=== PATIENT | female | born 1955 | race Caucasian/White ===

== ENCOUNTER 2020-10-16 19:02 | Inpatient (IN) | payer OTHER, SELFPAY ==
[2020-10-16 19:25] VITALS: BP 113/74; PULSE 92; RESP 14; TEMP 37.2; O2SAT 97; BMI 40.7
--- NOTE | 2020-10-16 22:46 | W.ED.NAVMDI ---
Documented by User: JEAN MARIE Anderson 10/17/20 03:15 HPI - Nausea/Vomiting/Diarrhea General: Chief complaint: Nausea/Vomiting/Diarrhea Stated complaint: weakness/n/v/d Time Seen by Provider: 10/16/20 22:46 Source: patient Mode of arrival: ambulatory Limitations: no limitations History of Present Illness: HPI Narrative: Patient is a 65-year-old female who presents to ED today with a complaint of nausea, vomiting, and diarrhea. Patient tells me nausea and vomiting began approximately 3 days ago. She tells me she has had countless episodes of non-bloody vomit. She is reporting diarrhea that started yesterday evening. She states she has had an loose stool approximately every hour since onset. She states the diarrhea is not bloody or black. She is having epigastric pain. Daughter states she was running fevers of 101 today. Patient denies URI symptoms. She is not having chest pain or shortness of breath. No COVID exposure. Denies urinary symptoms. MD elicited complaint: nausea, vomiting, diarrhea and abdominal pain Onset (ago): day(s) Description of vomiting: watery Description of diarrhea: watery Associated nausea: Yes Associated abdominal pain: Yes Location of pain: Epigastric Exacerbating factors: eating Relieving factors: none Associated symtoms: Reports nausea; Denies chest pain, dysuria, fatigue, headache(s) or malaise Review of Systems Const: Reports: fever(s); Denies: chills, body aches, fatigue or malaise ENMT: Denies: odynophagia Card: Denies: chest pain Resp: Denies: dyspnea GI: Reports: abdominal pain, nausea, vomiting and diarrhea; Denies: hematemesis, hematochezia, melena or white/light colored stool : Denies: flank pain, difficulty voiding, dysuria, urinary frequency, urinary urgency or urinary hesitancy Musc: Denies: neck pain, back pain, extremity pain, extremity swelling, joint pain or joint swelling Skin/Breast: Denies: rash Neuro: Denies: headache(s), numbness in extremities, weakness in extremities or sensory changes PFSH ED PFSH: Medical History (Updated 10/27/20 @ 14:58 by Yogi Pinto MD) Abnormal heart rhythm On metoprolol Acute pyelonephritis Obesity Osteoarthritis Pelviectasis, renal Surgical History History of lumpectomy benign, young age History of right hip replacement Family History Sister Chronic kidney disease (CKD) kidney removed Brother Chronic kidney disease (CKD) kidney removed Mother Diabetes Social History Smoking and tobacco status: never smoked Alcohol intake: never Household members: family Marital status: Current occupation: private caregiver Physical Exam Const: COMMON NORMALS: no acute distress, patient oriented x3, no limitations and alert NUTRITIONAL APPEARANCE: obese ORIENTATION/CONSCIOUSNESS: Yes awake, Yes oriented to person, Yes oriented to place and Yes oriented to time Resp: COMMON NORMALS: normal respiratory effort and clear to auscultation bilaterally EFFORT & INSPECTION: Yes able to speak in complete sentences AUSCULTATION: clear to auscultation bilaterally Cardio: COMMON NORMALS: regular rate and regular rhythm RATE: regular rate RHYTHM: regular rhythm GI: COMMON NORMALS: Normal to inspection, nondistended, normoactive bowel sounds present, Soft to palpation, No hepatosplenomegaly present and no masses AUSCULTATION: Yes normoactive bowel sounds PALPATION: Yes Soft to palpation, Yes Tenderness to palpation present (GI) (mild upper abdomen) and Yes No hepatosplenomegaly present : COMMON NORMALS: Yes no CVA tenderness BLADDER/KIDNEY EXAM: Yes no CVA tenderness Back/Pelvis: COMMON NORMALS: no CVA tenderness Extremity: COMMON NORMALS: no pedal edema Neuro: COMMON NORMALS: patient oriented x3 SENSORIUM/ORIENTATION: Yes alert, Yes oriented to person, Yes oriented to place and Yes oriented to time Skin: COMMON NORMALS: no rashes or lesions noted GENERAL SKIN EXAM: no rashes or lesions noted Course Vital Signs: Vital signs: Vital Signs Temperature 98.1 F 10/20/20 11:32 Pulse Rate 61 10/20/20 15:41 Respiratory Rate 17 10/20/20 11:32 Blood Pressure 123/62 10/20/20 11:32 Pulse Oximetry 97 10/20/20 11:32 MDM - Nausea/Vomiting/Diarrhea MDM Narrative: Medical decision making narrative: Patient most likely with a right-sided pyelonephritis. She has renal insufficiency with a BUN/Cr 34/1.8 and a GFR of 28.4. She has continued nausea and vomiting despite IV Zofran. She has mild hyponatremia and hypokalemia. Patient would benefit from hospitalization at this time. She has IV fluids and IV Zofran running. I have spoken to Dr. Sanchez who will speak to hospitalist. Lab Data: Labs: Lab Results 10/17/20 10/17/20 10/17/20 Range/Units 00:10 00:10 00:10 WBC 13.9 H (4.0-10.0) 10^3/ uL RBC 4.41 (4.1-5.3) 10^6/u L Hgb 13.5 (11.5-15.3) g/dL Hct 40.4 (37.0-47.0) % MCV 91.6 (81-99) fL MCH 30.6 (28.0-34.0) pg MCHC 33.4 (30.0-36.0) g/dL RDW 12.4 (12.1-15.1) % Plt Count 171 (130-400) 10^3/c mm MPV 10.4 (7.4-10.4) fL Neut % (Auto) 85.5 % Lymph % (Auto) 6.4 % [place] % (Auto) 6.4 % Eos % (Auto) 0.1 % Baso % (Auto) 0.9 % Neut # (Auto) 11.85 H (1.8-7.7) 10^3/u L Lymph # (Auto) 0.9 (0.8-4.8) 10^3/u L [place] # (Auto) 0.9 (0.2-0.9) 10^3/u L Eos # (Auto) 0.0 (0.0-0.8) 10^3/u L Baso # (Auto) 0.1 (0.0-0.1) 10^3/u L Nucleated RBC % (a uto) 0 % Nucleated RBCs # 0.0 /100WBC Sodium 129 L (136-145) mmol/L Potassium 3.2 L (3.5-5.1) mmol/L Chloride 93 L (98-107) mmol/L Carbon Dioxide 21 L (22-29) mmol/L Anion Gap 18.2 (5-19) BUN 34 H (8-23) mg/dL Creatinine 1.8 H (0.5-0.9) mg/dL GFR Calculation 28.4 L (90-130) mL/min Glucose 154 H (65-115) mg/dL Calculated Osmolal ity 279 L (285-295) mOsm/k g Lactic Acid (0.5-2.2) mmol/L Calcium 9.1 (8.5-10.5) mg/dL Magnesium 2.2 (1.7-2.3) mg/dL Total Bilirubin 0.5 (0.15-1.2) mg/dL AST 13 (0-32) U/L ALT 15 (0-33) U/L Alkaline Phosphata se 123 H (35-105) IU/L Total Protein 6.6 (6.6-8.7) g/dL Albumin 3.3 L (3.5-5.2) g/dL Globulin 3.3 (1.3-4.6) g/dL Lipase 19 (13-60) U/L Urine Color (Yellow) Urine Appearance (CLEAR) Urine pH (5-7) Ur Specific Gravit y (1.005-1.030) Urine Protein (Negative) Urine Glucose (UA) (Normal) Urine Ketones (Negative) Urine Blood (Negative) Urine Nitrate (Negative) Urine Bilirubin (Negative) Urine Urobilinogen (Negative) mg/dL Ur Leukocyte Azra ase (Negative) Urine RBC (0-2) /hpf Urine WBC (0-5) /hpf Ur Squamous Epith Cells (0-5) /hpf Ur Transition Epit h Cell /hpf Amorphous Sediment Urine Bacteria (NONE) /hpf Coarse Granular Ca sts /lpf Nasal/Oral COVID-1 9 PCR Influenza Type A A g (Negative) Influenza Type B A g (Negative) SARS-CoV-2 Ag (Rap id) (Negative) 10/17/20 10/17/20 10/17/20 Range/Units 00:10 00:20 00:20 WBC (4.0-10.0) 10^3/ uL RBC (4.1-5.3) 10^6/u L Hgb (11.5-15.3) g/dL Hct (37.0-47.0) % MCV (81-99) fL MCH (28.0-34.0) pg MCHC (30.0-36.0) g/dL RDW (12.1-15.1) % Plt Count (130-400) 10^3/c mm MPV (7.4-10.4) fL Neut % (Auto) % Lymph % (Auto) % [place] % (Auto) % Eos % (Auto) % Baso % (Auto) % Neut # (Auto) (1.8-7.7) 10^3/u L Lymph # (Auto) (0.8-4.8) 10^3/u L [place] # (Auto) (0.2-0.9) 10^3/u L Eos # (Auto) (0.0-0.8) 10^3/u L Baso # (Auto) (0.0-0.1) 10^3/u L Nucleated RBC % (a uto) % Nucleated RBCs # /100WBC Sodium (136-145) mmol/L Potassium (3.5-5.1) mmol/L Chloride (98-107) mmol/L Carbon Dioxide (22-29) mmol/L Anion Gap (5-19) BUN (8-23) mg/dL Creatinine (0.5-0.9) mg/dL GFR Calculation (90-130) mL/min Glucose (65-115) mg/dL Calculated Osmolal ity (285-295) mOsm/k g Lactic Acid 1.8 (0.5-2.2) mmol/L Calcium (8.5-10.5) mg/dL Magnesium (1.7-2.3) mg/dL Total Bilirubin (0.15-1.2) mg/dL AST (0-32) U/L ALT (0-33) U/L Alkaline Phosphata se (35-105) IU/L Total Protein (6.6-8.7) g/dL Albumin (3.5-5.2) g/dL Globulin (1.3-4.6) g/dL Lipase (13-60) U/L Urine Color (Yellow) Urine Appearance (CLEAR) Urine pH (5-7) Ur Specific Gravit y (1.005-1.030) Urine Protein (Negative) Urine Glucose (UA) (Normal) Urine Ketones (Negative) Urine Blood (Negative) Urine Nitrate (Negative) Urine Bilirubin (Negative) Urine Urobilinogen (Negative) mg/dL Ur Leukocyte Azra ase (Negative) Urine RBC (0-2) /hpf Urine WBC (0-5) /hpf Ur Squamous Epith Cells (0-5) /hpf Ur Transition Epit h Cell /hpf Amorphous Sediment Urine Bacteria (NONE) /hpf Coarse Granular Ca sts /lpf Nasal/Oral COVID-1 9 PCR Influenza Type A A g Negative (Negative) Influenza Type B A g Negative (Negative) SARS-CoV-2 Ag (Rap id) Negative (Negative) 10/17/20 10/17/20 Range/Units 00:30 01:15 WBC (4.0-10.0) 10^3/ uL RBC (4.1-5.3) 10^6/u L Hgb (11.5-15.3) g/dL Hct (37.0-47.0) % MCV (81-99) fL MCH (28.0-34.0) pg MCHC (30.0-36.0) g/dL RDW (12.1-15.1) % Plt Count (130-400) 10^3/c mm MPV (7.4-10.4) fL Neut % (Auto) % Lymph % (Auto) % [place] % (Auto) % Eos % (Auto) % Baso % (Auto) % Neut # (Auto) (1.8-7.7) 10^3/u L Lymph # (Auto) (0.8-4.8) 10^3/u L [place] # (Auto) (0.2-0.9) 10^3/u L Eos # (Auto) (0.0-0.8) 10^3/u L Baso # (Auto) (0.0-0.1) 10^3/u L Nucleated RBC % (a uto) % Nucleated RBCs # /100WBC Sodium (136-145) mmol/L Potassium (3.5-5.1) mmol/L Chloride (98-107) mmol/L Carbon Dioxide (22-29) mmol/L Anion Gap (5-19) BUN (8-23) mg/dL Creatinine (0.5-0.9) mg/dL GFR Calculation (90-130) mL/min Glucose (65-115) mg/dL Calculated Osmolal ity (285-295) mOsm/k g Lactic Acid (0.5-2.2) mmol/L Calcium (8.5-10.5) mg/dL Magnesium (1.7-2.3) mg/dL Total Bilirubin (0.15-1.2) mg/dL AST (0-32) U/L ALT (0-33) U/L Alkaline Phosphata se (35-105) IU/L Total Protein (6.6-8.7) g/dL Albumin (3.5-5.2) g/dL Globulin (1.3-4.6) g/dL Lipase (13-60) U/L Urine Color Yellow (Yellow) Urine Appearance Cloudy (CLEAR) Urine pH 5 (5-7) Ur Specific Gravit y 1.020 (1.005-1.030) Urine Protein 2+ H (Negative) Urine Glucose (UA) Norm (Normal) Urine Ketones 1+ H (Negative) Urine Blood 3+ H (Negative) Urine Nitrate Negative (Negative) Urine Bilirubin Neg (Negative) Urine Urobilinogen Norm (Negative) mg/dL Ur Leukocyte Azra ase 2+ H (Negative) Urine RBC 5-10 H (0-2) /hpf Urine WBC Too numerous to c nt H (0-5) /hpf Ur Squamous Epith Cells 0-4 H (0-5) /hpf Ur Transition Epit h Cell 0-4 /hpf Amorphous Sediment Not Reportable Urine Bacteria 3+ H (NONE) /hpf Coarse Granular Ca sts 25-40 H /lpf Nasal/Oral COVID-1 9 PCR Not detected Influenza Type A A g (Negative) Influenza Type B A g (Negative) SARS-CoV-2 Ag (Rap id) (Negative) Imaging Data^: CT Abd/Pel: Radiologist's impression: [facility] [address] [place] [address] CT Scan Report Signed Patient: Whitley Overton #: [id number] : 7Acct#:[id number] Age/Sex: 65 / FADM Date: 10/16/20 Loc: ERRoom/Bed: Attending Dr: Ordering Provider/Ordering MD: Krystal Booth Date of Service: 10/16/20 Procedure(s): CT abdomen pelvis wo con [id number] Accession Number(s): [id number] Report Number: [id number] PROCEDURE INFORMATION: Exam: CT Abdomen And Pelvis Without Contrast Exam date and time: 10/16/2020 11:20 PM Age: 65 years old Clinical indication: Nausea and vomiting; Abdominal pain; Localized; Upper; Prior surgery; Surgery date: 6+ months; Surgery type: RT hip; Additional info: Abdominal pain, n/v/d TECHNIQUE: Imaging protocol: Computed tomography of the abdomen and pelvis without contrast. Radiation optimization: All CT scans at this facility use at least one of these dose optimization techniques: automated exposure control; mA and/or kV adjustment per patient size (includes targeted exams where dose is matched to clinical indication); or iterative reconstruction. COMPARISON: No relevant prior studies available. RADIATION DOSE METRICS: Total DLP (mGy-cm): 1383.38 FINDINGS: Limitations: Study is limited by the absence of contrast. Limited by patient's body habitus. Mediastinal space: Mild gastro-esophageal thickening. Question distal esophagitis. Liver: Normal. No mass. Gallbladder and bile ducts: Cholelithiasis. No pericholecystic fat stranding. Pancreas: Normal. No ductal dilation. Spleen: The spleen demonstrates punctate calcifications, consistent with remote granulomatous organism exposure. Adrenal glands: Normal. No mass. Kidneys and ureters: Right renal moderate pelviectasis without obstructing calculi, normal caliber right ureter. Nonspecific perinephric stranding. Stomach and bowel: Mild colonic diverticulosis without evidence for acute diverticulitis. Appendix: Normal appendix. Intraperitoneal space: Unremarkable. No free air. No significant fluid collection. Vasculature: Unremarkable. No abdominal aortic aneurysm. Lymph nodes: Granulomatous calcified several lymph nodes in the upper abdomen. Urinary bladder: Unremarkable as visualized. Reproductive: Unremarkable as visualized. Bones/joints: 1 of the right acetabular screws extends through the cortex. Mild moderate lumbar spondylosis. T12 osseous vertebral hemangioma. Soft tissues: Small fat protruding umbilical hernia. CT/CT abdomen pelvis wo con [id number] IMPRESSION: 1. Cholelithiasis. 2. Right renal moderate pelviectasis without obstructing calculi, normal caliber right ureter. 3. Mild gastro-esophageal thickening. Question distal esophagitis. Radiation Dose CTDIVOL = (mGy): DLP = 1383.38 (mGy-cm) Dictated By:Bronson Nino MD Signed By:Bronson Nino MDSigned Date/Time:10/17/20204 DD/ 3 Discharge Plan Discharge Patient Disposition: Admitted As Inpatient Admit Provider: Evelyn Grider Condition: Stable Discharge Diet: Advance as tolerated and Low Fat Discharge Activity: Increase activity as tolerated Coding Level of Care Code ED Investigative Assistant for Chg Fwd Exam Detailed Documented by User: Gideon Sanchez DO 10/29/20 02:45 HPI - Nausea/Vomiting/Diarrhea General: Chief complaint: Nausea/Vomiting/Diarrhea Stated complaint: weakness/n/v/d Time Seen by Provider: 10/16/20 22:46 PFSH ED PFSH: Medical History (Updated 10/27/20 @ 14:58 by Yogi Pinto MD) Abnormal heart rhythm On metoprolol Acute pyelonephritis Obesity Osteoarthritis Pelviectasis, renal Surgical History History of lumpectomy benign, young age History of right hip replacement Family History Sister Chronic kidney disease (CKD) kidney removed Brother Chronic kidney disease (CKD) kidney removed Mother Diabetes Social History Smoking and tobacco status: never smoked Alcohol intake: never Household members: family Marital status: Current occupation: private caregiver Course Vital Signs: Vital signs: Vital Signs Temperature 98.1 F 10/20/20 11:32 Pulse Rate 61 10/20/20 15:41 Respiratory Rate 17 10/20/20 11:32 Blood Pressure 123/62 10/20/20 11:32 Pulse Oximetry 97 10/20/20 11:32 MDM - Nausea/Vomiting/Diarrhea MDM Narrative: Medical decision making narrative: 65-year-old female originally seen by Mrs. Booth?BRANDIE Salas I agree with her history, evaluation, and treatment. This lady has intractable nausea and vomiting and has vomited several times despite antiemetics and fluid in the ER. She will require observation for IV fluid hydration support and antiemetics. Lab Data: Labs: Lab Results 10/17/20 10/17/20 10/17/20 Range/Units 00:10 00:10 00:10 WBC 13.9 H (4.0-10.0) 10^3/ uL RBC 4.41 (4.1-5.3) 10^6/u L Hgb 13.5 (11.5-15.3) g/dL Hct 40.4 (37.0-47.0) % MCV 91.6 (81-99) fL MCH 30.6 (28.0-34.0) pg MCHC 33.4 (30.0-36.0) g/dL RDW 12.4 (12.1-15.1) % Plt Count 171 (130-400) 10^3/c mm MPV 10.4 (7.4-10.4) fL Neut % (Auto) 85.5 % Lymph % (Auto) 6.4 % [place] % (Auto) 6.4 % Eos % (Auto) 0.1 % Baso % (Auto) 0.9 % Neut # (Auto) 11.85 H (1.8-7.7) 10^3/u L Lymph # (Auto) 0.9 (0.8-4.8) 10^3/u L [place] # (Auto) 0.9 (0.2-0.9) 10^3/u L Eos # (Auto) 0.0 (0.0-0.8) 10^3/u L Baso # (Auto) 0.1 (0.0-0.1) 10^3/u L Nucleated RBC % (a uto) 0 % Nucleated RBCs # 0.0 /100WBC Sodium 129 L (136-145) mmol/L Potassium 3.2 L (3.5-5.1) mmol/L Chloride 93 L (98-107) mmol/L Carbon Dioxide 21 L (22-29) mmol/L Anion Gap 18.2 (5-19) BUN 34 H (8-23) mg/dL Creatinine 1.8 H (0.5-0.9) mg/dL GFR Calculation 28.4 L (90-130) mL/min Glucose 154 H (65-115) mg/dL Calculated Osmolal ity 279 L (285-295) mOsm/k g Lactic Acid (0.5-2.2) mmol/L Calcium 9.1 (8.5-10.5) mg/dL Magnesium 2.2 (1.7-2.3) mg/dL Total Bilirubin 0.5 (0.15-1.2) mg/dL AST 13 (0-32) U/L ALT 15 (0-33) U/L Alkaline Phosphata se 123 H (35-105) IU/L Total Protein 6.6 (6.6-8.7) g/dL Albumin 3.3 L (3.5-5.2) g/dL Globulin 3.3 (1.3-4.6) g/dL Lipase 19 (13-60) U/L Urine Color (Yellow) Urine Appearance (CLEAR) Urine pH (5-7) Ur Specific Gravit y (1.005-1.030) Urine Protein (Negative) Urine Glucose (UA) (Normal) Urine Ketones (Negative) Urine Blood (Negative) Urine Nitrate (Negative) Urine Bilirubin (Negative) Urine Urobilinogen (Negative) mg/dL Ur Leukocyte Azra ase (Negative) Urine RBC (0-2) /hpf Urine WBC (0-5) /hpf Ur Squamous Epith Cells (0-5) /hpf Ur Transition Epit h Cell /hpf Amorphous Sediment Urine Bacteria (NONE) /hpf Coarse Granular Ca sts /lpf Nasal/Oral COVID-1 9 PCR Influenza Type A A g (Negative) Influenza Type B A g (Negative) SARS-CoV-2 Ag (Rap id) (Negative) 10/17/20 10/17/20 10/17/20 Range/Units 00:10 00:20 00:20 WBC (4.0-10.0) 10^3/ uL RBC (4.1-5.3) 10^6/u L Hgb (11.5-15.3) g/dL Hct (37.0-47.0) % MCV (81-99) fL MCH (28.0-34.0) pg MCHC (30.0-36.0) g/dL RDW (12.1-15.1) % Plt Count (130-400) 10^3/c mm MPV (7.4-10.4) fL Neut % (Auto) % Lymph % (Auto) % [place] % (Auto) % Eos % (Auto) % Baso % (Auto) % Neut # (Auto) (1.8-7.7) 10^3/u L Lymph # (Auto) (0.8-4.8) 10^3/u L [place] # (Auto) (0.2-0.9) 10^3/u L Eos # (Auto) (0.0-0.8) 10^3/u L Baso # (Auto) (0.0-0.1) 10^3/u L Nucleated RBC % (a uto) % Nucleated RBCs # /100WBC Sodium (136-145) mmol/L Potassium (3.5-5.1) mmol/L Chloride (98-107) mmol/L Carbon Dioxide (22-29) mmol/L Anion Gap (5-19) BUN (8-23) mg/dL Creatinine (0.5-0.9) mg/dL GFR Calculation (90-130) mL/min Glucose (65-115) mg/dL Calculated Osmolal ity (285-295) mOsm/k g Lactic Acid 1.8 (0.5-2.2) mmol/L Calcium (8.5-10.5) mg/dL Magnesium (1.7-2.3) mg/dL Total Bilirubin (0.15-1.2) mg/dL AST (0-32) U/L ALT (0-33) U/L Alkaline Phosphata se (35-105) IU/L Total Protein (6.6-8.7) g/dL Albumin (3.5-5.2) g/dL Globulin (1.3-4.6) g/dL Lipase (13-60) U/L Urine Color (Yellow) Urine Appearance (CLEAR) Urine pH (5-7) Ur Specific Gravit y (1.005-1.030) Urine Protein (Negative) Urine Glucose (UA) (Normal) Urine Ketones (Negative) Urine Blood (Negative) Urine Nitrate (Negative) Urine Bilirubin (Negative) Urine Urobilinogen (Negative) mg/dL Ur Leukocyte Azra ase (Negative) Urine RBC (0-2) /hpf Urine WBC (0-5) /hpf Ur Squamous Epith Cells (0-5) /hpf Ur Transition Epit h Cell /hpf Amorphous Sediment Urine Bacteria (NONE) /hpf Coarse Granular Ca sts /lpf Nasal/Oral COVID-1 9 PCR Influenza Type A A g Negative (Negative) Influenza Type B A g Negative (Negative) SARS-CoV-2 Ag (Rap id) Negative (Negative) 10/17/20 10/17/20 Range/Units 00:30 01:15 WBC (4.0-10.0) 10^3/ uL RBC (4.1-5.3) 10^6/u L Hgb (11.5-15.3) g/dL Hct (37.0-47.0) % MCV (81-99) fL MCH (28.0-34.0) pg MCHC (30.0-36.0) g/dL RDW (12.1-15.1) % Plt Count (130-400) 10^3/c mm MPV (7.4-10.4) fL Neut % (Auto) % Lymph % (Auto) % [place] % (Auto) % Eos % (Auto) % Baso % (Auto) % Neut # (Auto) (1.8-7.7) 10^3/u L Lymph # (Auto) (0.8-4.8) 10^3/u L [place] # (Auto) (0.2-0.9) 10^3/u L Eos # (Auto) (0.0-0.8) 10^3/u L Baso # (Auto) (0.0-0.1) 10^3/u L Nucleated RBC % (a uto) % Nucleated RBCs # /100WBC Sodium (136-145) mmol/L Potassium (3.5-5.1) mmol/L Chloride (98-107) mmol/L Carbon Dioxide (22-29) mmol/L Anion Gap (5-19) BUN (8-23) mg/dL Creatinine (0.5-0.9) mg/dL GFR Calculation (90-130) mL/min Glucose (65-115) mg/dL Calculated Osmolal ity (285-295) mOsm/k g Lactic Acid (0.5-2.2) mmol/L Calcium (8.5-10.5) mg/dL Magnesium (1.7-2.3) mg/dL Total Bilirubin (0.15-1.2) mg/dL AST (0-32) U/L ALT (0-33) U/L Alkaline Phosphata se (35-105) IU/L Total Protein (6.6-8.7) g/dL Albumin (3.5-5.2) g/dL Globulin (1.3-4.6) g/dL Lipase (13-60) U/L Urine Color Yellow (Yellow) Urine Appearance Cloudy (CLEAR) Urine pH 5 (5-7) Ur Specific Gravit y 1.020 (1.005-1.030) Urine Protein 2+ H (Negative) Urine Glucose (UA) Norm (Normal) Urine Ketones 1+ H (Negative) Urine Blood 3+ H (Negative) Urine Nitrate Negative (Negative) Urine Bilirubin Neg (Negative) Urine Urobilinogen Norm (Negative) mg/dL Ur Leukocyte Azra ase 2+ H (Negative) Urine RBC 5-10 H (0-2) /hpf Urine WBC Too numerous to c nt H (0-5) /hpf Ur Squamous Epith Cells 0-4 H (0-5) /hpf Ur Transition Epit h Cell 0-4 /hpf Amorphous Sediment Not Reportable Urine Bacteria 3+ H (NONE) /hpf Coarse Granular Ca sts 25-40 H /lpf Nasal/Oral COVID-1 9 PCR Not detected Influenza Type A A g (Negative) Influenza Type B A g (Negative) SARS-CoV-2 Ag (Rap id) (Negative) Discharge Plan Discharge Patient Disposition: Admitted As Inpatient Admit Provider: Evelyn Grider Condition: Stable Discharge Diet: Advance as tolerated and Low Fat Discharge Activity: Increase activity as tolerated Coding Level of Care Code ED Investigative Assistant for Chg Fwd Exam Detailed
[2020-10-16 22:59] VITALS: BP 144/52; PULSE 100; RESP 25; O2SAT 95
--- NOTE | 2020-10-16 23:00 | CTR_ITS ---
PROCEDURE INFORMATION: Exam: CT Abdomen And Pelvis Without Contrast Exam date and time: 10/16/2020 11:20 PM Age: 65 years old Clinical indication: Nausea and vomiting; Abdominal pain; Localized; Upper; Prior surgery; Surgery date: 6+ months; Surgery type: RT hip; Additional info: Abdominal pain, n/v/d TECHNIQUE: Imaging protocol: Computed tomography of the abdomen and pelvis without contrast. Radiation optimization: All CT scans at this facility use at least one of these dose optimization techniques: automated exposure control; mA and/or kV adjustment per patient size (includes targeted exams where dose is matched to clinical indication); or iterative reconstruction. COMPARISON: No relevant prior studies available. RADIATION DOSE METRICS: Total DLP (mGy-cm): 1383.38 FINDINGS: Limitations: Study is limited by the absence of contrast. Limited by patient's body habitus. Mediastinal space: Mild gastro-esophageal thickening. Question distal esophagitis. Liver: Normal. No mass. Gallbladder and bile ducts: Cholelithiasis. No pericholecystic fat stranding. Pancreas: Normal. No ductal dilation. Spleen: The spleen demonstrates punctate calcifications, consistent with remote granulomatous organism exposure. Adrenal glands: Normal. No mass. Kidneys and ureters: Right renal moderate pelviectasis without obstructing calculi, normal caliber right ureter. Nonspecific perinephric stranding. Stomach and bowel: Mild colonic diverticulosis without evidence for acute diverticulitis. Appendix: Normal appendix. Intraperitoneal space: Unremarkable. No free air. No significant fluid collection. Vasculature: Unremarkable. No abdominal aortic aneurysm. Lymph nodes: Granulomatous calcified several lymph nodes in the upper abdomen. Urinary bladder: Unremarkable as visualized. Reproductive: Unremarkable as visualized. Bones/joints: 1 of the right acetabular screws extends through the cortex. Mild moderate lumbar spondylosis. T12 osseous vertebral hemangioma. Soft tissues: Small fat protruding umbilical hernia. CT/CT abdomen pelvis wo con [id number] IMPRESSION: 1. Cholelithiasis. 2. Right renal moderate pelviectasis without obstructing calculi, normal caliber right ureter. 3. Mild gastro-esophageal thickening. Question distal esophagitis. Radiation Dose CTDIVOL = (mGy): DLP = 1383.38 (mGy-cm)
[2020-10-16 23:29] VITALS: BP 126/52; PULSE 97; RESP 21; O2SAT 95
[2020-10-16 23:59] VITALS: BP 129/55; PULSE 101; RESP 19; O2SAT 98
[2020-10-17] VITALS (13 sets, daily range): BP systolic 101–145; BP diastolic 50–78; PULSE 77–115; RESP 18–24; TEMP 36.3–38; O2SAT 94–98
[2020-10-17] MEDS: sodium chloride 0.9% 1,000 ML 999 ML IV (00:05)
[2020-10-17] MEDS: lidocaine 2% viscous 15 ML, aluminum-mag hydrox-simethicon 30 ML, sucralfate oral liq 1 GM PO (00:05)
[2020-10-17] MEDS: ondansetron 2 mg/ML SDV 2 mL 4 MG IVP (00:10)
[2020-10-17 00:40] LABS: Basophils # 0.1 10^3/uL (0.0-0.1); Basophils % 0.9 %; Eosinophils % 0.1 %; Hematocrit 40.4 % (37.0-47.0); Hemoglobin 13.5 g/dL (11.5-15.3); Lymphocytes # 0.9 10^3/uL (0.8-4.8); Lymphocytes % 6.4 %; Mean Corpuscular HGB Conc 33.4 g/dL (30.0-36.0); Mean Corpuscular Hemoglobin 30.6 pg (28.0-34.0); Mean Corpuscular Volume 91.6 fL (81-99); Mean Platelet Volume 10.4 fL (7.4-10.4); Monocytes # 0.9 10^3/uL (0.2-0.9); Monocytes % 6.4 %; Neutrophils # 11.85 10^3/uL (1.8-7.7); Neutrophils % 85.5 %; Nucleated Red Blood Cells % 0 %; Platelet Count 171 10^3/cmm (130-400); Red Blood Count 4.41 10^6/uL (4.1-5.3); Red Cell Distribution Width 12.4 % (12.1-15.1); White Blood Count 13.9 10^3/uL (4.0-10.0)
[2020-10-17 00:54] LABS: Alanine Aminotransferase 15 U/L (0-33); Albumin Level 3.3 g/dL (3.5-5.2); Alkaline Phosphatase 123 IU/L (35-105); Anion Gap 18.2 (5-19); Aspartate Amino Transferase 13 U/L (0-32); Blood Urea Nitrogen 34 mg/dL (8-23); Calcium 9.1 mg/dL (8.5-10.5); Carbon Dioxide 21 mmol/L (22-29); Chloride 93 mmol/L (98-107); Globulin 3.3 g/dL (1.3-4.6); Glomerular Filtration Rate 28.4 mL/min (90-130); Glucose 154 mg/dL (65-115); Lipase 19 U/L (13-60); Osmolality Calculated 279 mOsm/kg (285-295); Potassium 3.2 mmol/L (3.5-5.1); Sodium 129 mmol/L (136-145); Total Bilirubin 0.5 mg/dL (0.15-1.2); Total Protein 6.6 g/dL (6.6-8.7)
[2020-10-17 01:38] LABS: Magnesium 2.2 mg/dL (1.7-2.3)
[2020-10-17 01:44] LABS: Urine Appearance Cloudy (CLEAR); Urine Color Yellow (Yellow); pH Urine 5 (5-7)
[2020-10-17 01:44] LABS: Influenza A by IFA Negative (Negative); Influenza B by IFA Negative (Negative); SARS Covid-2 Antigen Negative (Negative)
[2020-10-17 01:45] LABS: Add Urine Microscopic? YES; Bilirubin Urine Neg (Negative); Blood Urine 3+ (Negative); Glucose Urine UA Norm (Normal); Ketones Urine 1+ (Negative); Leukocyte Esterase Urine 2+ (Negative); Nitrate Urine Negative (Negative); Protein Urine 2+ (Negative); Urobilinogen Urine Norm (Negative)
[2020-10-17 01:47] LABS: Bacteria Urine 3+ /hpf; Squamous Epithelial Cell Urine 0-4 /hpf (0-5); Transitional Epi Cells Urine 0-4 /hpf; WBC Urine TOO NUMEROUS TO CNT /hpf (0-5)
[2020-10-17 01:48] LABS: Add Urine Culture? Yes; Coarse Granular Casts Urine 25-40 /lpf
[2020-10-17] MEDS: cefTRIAXone 1,000 MG in sodium chloride 0.9% (plus) 50 ML 100 MG IV (02:45)
[2020-10-17] MEDS: potassium chloride ER 20 mEq Tablet 40 MEQ PO (03:15)
[2020-10-17] MEDS: metoclopramide 5 mg/mL SDV 2 mL 10 MG IVP (03:25)
[2020-10-17 04:06] LABS: Lactic Sepsis W/Reflex 1.8 mmol/L (0.5-2.2)
--- NOTE | 2020-10-17 04:35 | P.HP_ITS ---
Providers/Chief Complaint Admitting Physician: Evelyn Grider MD Primary Care Provider: Chitra Colunga NP Chief Complaint: weakness/n/v/d History of Present Illness Whitley Overton is a 65 year old female who presented to the emergency room with chief complaint of nausea, vomiting, diarrhea and general malaise since last . For symptoms that she noted was some abdominal discomfort in the lower abdominal area. She began to have some vomiting followed by diarrhea. She does not really report any difficulty with urination but has been having diarrhea every 1-2 hours for the last 24 to 48 hours. Denies any blood in her stools or black tarry stools. Stool is watery. She has had fevers at home, chills, aches. She was worried she might have Covid. She is a private [facility]. 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 Has not been on any recent antibiotics. In the emergency room she was found to have positive urine specimen an elevated white count. CT of the abdomen and pelvis was done demonstrating right renal pelviectasis in addition to some mild gastroesophageal thickening. She received some fluids and Rocephin and several antiemetics in the emergency room. She continued to have vomiting. Given inability to keep oral antibiotics down and evidence of acute kidney injury she is being admitted for treatment. She has never had similar issues previously. Review of Systems Const: Reports: fever(s), chills, body aches, change in appetite, fatigue and malaise Eyes: Denies: change in vision ENMT: Denies: throat pain or nasal congestion Card: Reports: palpitations; Denies: chest pain or edema Resp: Reports: dyspnea; Denies: productive cough or non-productive cough GI: Reports: abdominal pain, nausea, vomiting, diarrhea and GI cramping; Denies: hematemesis, constipation, hematochezia or melena : Denies: flank pain, difficulty voiding, urinary frequency or hematuria Musc: Reports: extremity pain (Chronic, not acute) Skin/Breast: Denies: rash, pruritus or sores Neuro: Reports: headache(s), weakness in extremities and dizziness; Denies: numbness in extremities Psych: Denies: anxiety or depression Topher/Lymph: Denies: easy bruising or easy bleeding Medications/Allergies Home Medications Medication Instructions Recorded Confirmed Last Taken Type gabapentin 100 mg PO DAILY 10/17/20 10/17/20 Unknown History metoprolol tartrate 50 mg PO BID 10/17/20 10/17/20 Unknown History tramadol 50 mg PO Q6H PRN 10/17/20 10/17/20 Unknown History Allergies Allergy/AdvReac Type Severity Reaction Status Date / Time No Known Allergies Allergy Verified 10/16/20 19:29 PFSH Acute PFSH: Medical History (Updated 10/17/20 @ 05:16 by Evelyn Grider MD) Abnormal heart rhythm On metoprolol Obesity Osteoarthritis Surgical History (Updated 10/17/20 @ 05:02 by Evelyn Grider MD) History of lumpectomy benign, young age History of right hip replacement Family History (Updated 10/17/20 @ 04:53 by Evelyn Grider MD) Sister Chronic kidney disease (CKD) kidney removed Brother Chronic kidney disease (CKD) kidney removed Mother Diabetes Social History (Updated 10/17/20 @ 04:54 by Evelyn Grider MD) Smoking and tobacco status: never smoked Alcohol intake: never Substance/Drug Use: never Household members: family Marital status: Current occupation: private caregiver Female Reproductive History: : 6 Para: 6 Vitals/I&O/Wt Last Vital Signs Temp 98.9 F 10/16/20 19:25 Pulse 96 10/17/20 03:29 Resp 20 H 10/17/20 03:29 BP 132/53 10/17/20 03:29 Pulse Ox 97 10/17/20 03:29 Weight last 48 hrs Weight 104.326 kg Physical Exam Narrative: EXAM NARRATIVE: Patient is awake and alert, moderately ill- appearing but no acute respiratory distress Normocephalic atraumatic pupils are equally round and reactive to light, nasopharynx is clear, oropharynx with dry mucous membranes, neck is large but supple, no lymphadenopathy appreciated Lungs are clear to auscultation bilaterally no rales rhonchi or wheezes noted Regular but tachycardic rhythm, no murmurs, heart sounds slightly distant Abdomen is soft, mild lower quadrant tenderness, no flank pain, positive bowel sounds Normal external female genitalia No pitting edema to lower extremities Speech clear, face symmetric, moves all extremities Normal affect, cooperative Some discoloration under both breasts and in the groin that look chronic in nature rather than acute, skin is dry, no sores noted Cardio: COMMON NORMALS: No rub (Cardio) Psych: COMMON NORMALS: cooperative Data : 10/17/20 00:10 10/17/20 00:10 Micro: Microbiology 10/17/20 02:50 Blood Culture - Preliminary Blood SPECIMEN COLLECTED A&P Assessment and plan (1) Acute pyelonephritis: With associated nausea, vomiting, fever, diarrhea and abdominal discomfort Status: Acute (2) Sepsis: As evidenced by fever, tachycardia, leukocytosis, acute renal failure. No evidence of septic shock. Status: Acute Qualifiers: Sepsis type: sepsis due to unspecified organism Sepsis acute organ dysfunction status: with acute organ dysfunction Severe sepsis acute organ dysfunction type: acute renal failure Severe sepsis shock status: without septic shock Acute renal failure type: unspecified Qualified Code(s): A41.9 - Sepsis, unspecified organism; R65.20 - Severe sepsis without septic shock; N17.9 - Acute kidney failure, unspecified (3) Acute kidney injury: Status: Acute (4) Abnormal heart rhythm: Status: Chronic Qualifiers: Arrhythmia type: unspecified cardiac arrhythmia Qualified Code(s): I49.9 - Cardiac arrhythmia, unspecified (5) Obesity: Status: Chronic Qualifiers: Obesity type: due to excess calories Obesity classification: adult class 3 (BMI >= 40) Serious obesity comorbidity presence: without serious comorbidity Body mass index: BMI 40.0-44.9 Qualified Code(s): E66.01 - Morbid (severe) obesity due to excess calories; Z68.41 - Body mass index [BMI]40.0- 44.9, adult Additional A&P Information Inpatient admission IV fluids Continue Rocephin Follow-up pending cultures Stool for C. difficile Lactobacillus Continue home metoprolol at a lower dose Continue tramadol if needed for moderate severe pain Pepcid for GI prophylaxis Antiemetics as needed Lovenox for DVT prophylaxis Supportive care otherwise Covid PCR was ordered from the ER and is still pending so will require appropriate isolation for such. Rapid Covid antigen was negative. Influenza screening was negative. Full code Plans were discussed with patient and she was given an opportunity to ask questions Attestations Medical Necessity Statement*: Anticipated stay greater than 2 midnights in a patient with acute pyelonephritis, continued vomiting and acute renal failure. Requires IV antibiotics, fluids and supportive care as noted. Coding Level of Care Code Acute Cloth Sander for g Fwd Diagnoses Acute pyelonephritis N10 Sepsis A41.9; R65.20; N17.9 Sepsis type: sepsis due to unspecified organism Sepsis acute organ dysfunction status: with acute organ dysfunction Severe sepsis acute organ dysfunction type: acute renal failure Severe sepsis shock status: without septic shock Acute renal failure type: unspecified Acute kidney injury N17.9 Abnormal heart rhythm I49.9 Arrhythmia type: unspecified cardiac arrhythmia Obesity E66.01; Z68.41 Obesity type: due to excess calories Obesity classification: adult class 3 (BMI >= 40) Serious obesity comorbidity presence: without serious comorbidity Body mass index: BMI 40.0-44.9
[2020-10-17] MEDS: enoxaparin 40 mg/0.4 mL Syringe SUBCUT (07:10)
[2020-10-17] MEDS: sodium chlor 0.9% + KCl 20 mEq 20 MEQ/1,000 ML BAG 100 MEQ IV ×2 (07:10→18:50)
[2020-10-17] MEDS: famotidine 20 mg/2 mL INJ IVP ×2 (08:04→21:07)
[2020-10-17] MEDS: metoprolol tartrate 50 mg Tablet 25 MG PO ×2 (08:05→18:49)
[2020-10-17] MEDS: lactobacillus 1 Tablet 1 TAB PO ×2 (08:05→18:50)
--- NOTE | 2020-10-17 09:34 | PC.CHAP ---
Pastoral Care Encounter/Spiritual Assessment Type of Contact [] Declined transfer station operator visit [] Patient/Family/Request visit [] Outpatient visit [] Follow-up visit [] Physician referral [] Code/Alert [x] Routine visit [] Staff referral [] Actively dying [] Patient sleeping [] Family support [] [x] Out of room [] Palliative care [] [] Receiving care in room [] Pre-surgical visit [] Trauma [] Long length of stay [] ICU visit [] Other: Relational/Emotional Strength [] Patient feels connected with others/family/visitors/staff [] Distress [] Loneliness/isolation [] Abandonment Spirituality of Patient [] Person of [place] [] Attends Voodoo of their [place] [] Believes in Prayer [] Reads Bible or Congregation materials [] There are Spiritual issues to be addressed Resident Athletic Trainer Interventions [] Prayer [] Active listening [] Non-anxious presence [] Spiritual/emotional support [] Crisis/trauma care [] Spiritual counseling [] Bereavement support [] Provided bereavement packet [] Provided Bible/devotional materials [] Provided toy/stuffed animal, coloring book to patient or family member [] Provided Communion [] Anointing/[place] [] Salvation [] Completed spiritual assessment [] Other: Impact on Illness or Injury [] Angry [] Fearful [] Anxious [] Often cries [] Exhaustion [] Unable to work [] Unable to attend hinduism [] Unable to walk/stand [] Unable to read [] Unable to drive [] Unable to eat/drink [] Unable to sleep [] Unable to be with family [] Patient intubated [] Other: Summary Time spent with patient
[2020-10-17] MEDS: TRAMadol 50 mg Tablet PO (12:11)
--- NOTE | 2020-10-17 18:25 | P.PN_ITS ---
Subjective Subjective: Interval history: She is doing little bit better overall. Still having some urinary interesting, although reports the symptoms have been going on for to 2 years, with urge incontinence. Reports some discomfort in the left side of her abdomen with drinking water today. States that she has been using Aleve recently, but has also history of long-term use for years, starting initially due to bad arthritis in her hip prior to hip surgery. Denies recently passing any obvious kidney stones. Has been having nausea, vomiting, diarrhea, but nothing so far this morning. Vitals/I&O/Wt Last Vital Signs Temp 99.7 F H 10/17/20 16:00 Pulse 99 10/17/20 16:00 Resp 18 10/17/20 16:00 BP 115/75 10/17/20 16:00 Pulse Ox 95 10/17/20 16:00 10/17/20 10/17/20 10/17/20 06:59 14:59 22:59 Intake Total 200 / 200 Balance 200 / 200 Weight last 48 hrs Weight 104.326 kg Physical Exam Const: COMMON NORMALS: no acute distress, patient oriented x3 and alert NUTRITIONAL APPEARANCE: obese ORIENTATION/CONSCIOUSNESS: Yes awake OTHER: Mildly uncomfortable with nausea, abdominal discomfort. Conversant. HENMT: COMMON NORMALS: oropharynx normal Neck/C-Spine: COMMON NORMALS: no JVD Resp: COMMON NORMALS: normal respiratory effort and clear to auscultation bilaterally AUSCULTATION: clear to auscultation bilaterally Cardio: COMMON NORMALS: no JVD, regular rhythm, S1 normal heart sound present, S2 normal heart sound present and No murmurs present (Cardio) RHYTHM: regular rhythm HEART SOUNDS: S1 normal heart sound present and S2 normal heart sound present GI: COMMON NORMALS: Normal to inspection, nondistended, normoactive bowel sounds present and Soft to palpation PALPATION: Yes Soft to palpation and Yes Tenderness to palpation present (GI) (Mild tenderness left side mid abdomen) : COMMON NORMALS: Yes no CVA tenderness BLADDER/KIDNEY EXAM: Yes no CVA tenderness Back/Pelvis: COMMON NORMALS: no CVA tenderness Extremity: COMMON NORMALS: no joint enlargement and no pedal edema Neuro: COMMON NORMALS: patient oriented x3 and moves all extremities SENSORIUM/ORIENTATION: Yes alert Skin: COMMON NORMALS: no rashes or lesions noted GENERAL SKIN EXAM: no rashes or lesions noted Data : 10/17/20 00:10 10/17/20 00:10 Micro: Microbiology 10/17/20 02:50 Blood Culture - Preliminary Blood SPECIMEN COLLECTED A&P Assessment and plan (1) Acute pyelonephritis: Complicated urinary tract infection with systemic symptoms, fever. Py elonephritis. Right renal moderate pelviectasis without obstructing stone. Denies passing stone recently. Ureter caliber is normal. Unclear if may have passed a stone administer in recent past her urinalysis, or if there is additional structural abnormality. She is agreeable to be additionally see urology after discharge. At this time continue Rocephin. Follow-up urine culture. With associated nausea, vomiting, fever, diarrhea and abdominal discomfort so far GI symptoms have shown improvement. Advance diet to clear liquids. Status: Acute (2) Sepsis: Low-grade fevers in the hospital. Leukocytosis. Sinus tachycardia, although this appears to be improving today. Monitor. Continue antibiotics as above. Follow-up cultures. Status: Acute Qualifiers: Sepsis type: sepsis due to unspecified organism Sepsis acute organ dysfunction status: with acute organ dysfunction Severe sepsis acute organ dysfunction type: acute renal failure Acute renal failure type: unspecified Severe sepsis shock status: without septic shock Qualified Code(s): A41.9 - Sepsis, unspecified organism; R65.20 - Severe sepsis without septic shock; N17.9 - Acute kidney failure, unspecified (3) Acute kidney injury: Creatinine 1.8. She reports Aleve use at home which has been rather chronic. Discussed with her discontinuation. She verbalized understanding. Will use Tylenol instead if needed. Discussed multimodal pain control options. Continue gentle fluid challenge. Monitor renal function. Status: Acute (4) Abnormal heart rhythm: Status: Chronic Qualifiers: Arrhythmia type: unspecified cardiac arrhythmia Qualified Code(s): I49.9 - Cardiac arrhythmia, unspecified (5) Obesity: Status: Chronic Qualifiers: Obesity type: due to excess calories Obesity classification: adult class 3 (BMI >= 40) Serious obesity comorbidity presence: without serious comorbidity Body mass index: BMI 40.0-44.9 Qualified Code(s): E66.01 - Morbid (severe) obesity due to excess calories; Z68.41 - Body mass index [BMI]40.0- 44.9, adult Additional A&P Information Follow-up on symptoms of urge incontinence with PCP. Gastroesophagitis: With chronic NSAID use. Mild thickening of distal esophagus, stomach on CT. Does have some left-sided abdominal discomfort. Continue famotidine at this time. Consider additional endoscopic evaluation once out of acute episode. Diarrhea: So far resolved. Monitor. Follow-up stool studies. Follow-up COVID- 19 PCR. Maintain isolation for now. Rapid COVID-19 was negative as well as rapid influenza antigen. Attestations Medical Necessity Statement*: Continue admission for assessment management of complicated her tract infection, sepsis. Coding Level of Care Code Acute Fire And Explosion Investigator for [facility] Fwd Diagnoses Acute pyelonephritis N10 Sepsis A41.9; R65.20; N17.9 Sepsis type: sepsis due to unspecified organism Sepsis acute organ dysfunction status: with acute organ dysfunction Severe sepsis acute organ dysfunction type: acute renal failure Acute renal failure type: unspecified Severe sepsis shock status: without septic shock Acute kidney injury N17.9 Abnormal heart rhythm I49.9 Arrhythmia type: unspecified cardiac arrhythmia Obesity E66.01; Z68.41 Obesity type: due to excess calories Obesity classification: adult class 3 (BMI >= 40) Serious obesity comorbidity presence: without serious comorbidity Body mass index: BMI 40.0-44.9
[2020-10-17] MEDS: acetaminophen 325 mg Tablet 650 MG PO (21:08)
[2020-10-18] VITALS (10 sets, daily range): BP systolic 118–138; BP diastolic 70–82; PULSE 61–78; RESP 18; TEMP 36.4–37.8; O2SAT 96–100; BMI 42.1
[2020-10-18] MEDS: cefTRIAXone 1,000 MG in sodium chloride 0.9% (plus) 50 ML 100 MG IV (02:47)
[2020-10-18 05:09] LABS: Basophils % 0.2 %; Eosinophils # 0.2 10^3/uL (0.0-0.8); Eosinophils % 1.3 %; Hematocrit 34.8 % (37.0-47.0); Hemoglobin 11.2 g/dL (11.5-15.3); Lymphocytes # 0.9 10^3/uL (0.8-4.8); Lymphocytes % 8.1 %; Mean Corpuscular HGB Conc 32.2 g/dL (30.0-36.0); Mean Corpuscular Hemoglobin 30.5 pg (28.0-34.0); Mean Corpuscular Volume 94.8 fL (81-99); Mean Platelet Volume 10.3 fL (7.4-10.4); Monocytes # 1.1 10^3/uL (0.2-0.9); Monocytes % 9.4 %; Neutrophils # 8.91 10^3/uL (1.8-7.7); Neutrophils % 79.2 %; Nucleated Red Blood Cells % 0 %; Platelet Count 145 10^3/cmm (130-400); Red Blood Count 3.67 10^6/uL (4.1-5.3); Red Cell Distribution Width 13.2 % (12.1-15.1); White Blood Count 11.3 10^3/uL (4.0-10.0)
[2020-10-18 06:03] LABS: Anion Gap 13.5 (5-19); Blood Urea Nitrogen 35 mg/dL (8-23); Calcium 8.7 mg/dL (8.5-10.5); Carbon Dioxide 22 mmol/L (22-29); Chloride 103 mmol/L (98-107); Glomerular Filtration Rate 32.6 mL/min (90-130); Glucose 118 mg/dL (65-115); Magnesium 2.1 mg/dL (1.7-2.3); Osmolality Calculated 289 mOsm/kg (285-295); Potassium 3.5 mmol/L (3.5-5.1); Sodium 135 mmol/L (136-145)
[2020-10-18] MEDS: sodium chlor 0.9% + KCl 20 mEq 20 MEQ/1,000 ML BAG 100 MEQ IV ×2 (06:50→18:01)
[2020-10-18] MEDS: enoxaparin 40 mg/0.4 mL Syringe SUBCUT (06:50)
[2020-10-18 07:11] LABS: Slide Review Slide Review Perform
[2020-10-18] MEDS: lactobacillus 1 Tablet 1 TAB PO ×2 (07:57→18:04)
[2020-10-18] MEDS: metoprolol tartrate 50 mg Tablet 25 MG PO ×2 (07:57→18:04)
[2020-10-18] MEDS: famotidine 20 mg/2 mL INJ IVP ×2 (08:12→20:45)
[2020-10-18 15:12] LABS: Coronavirus Test Green County Not Detected
--- NOTE | 2020-10-18 17:26 | PM.PN ---
Subjective Subjective: Interval history: She is doing slightly better. She is still having diarrhea. Has been feeling bloated. Vitals/I&O/Wt Last Vital Signs Temp 100.0 F H 10/18/20 15:23 Pulse 73 10/18/20 15:23 Resp 18 10/18/20 15:23 BP 131/74 10/18/20 15:23 Pulse Ox 100 10/18/20 15:23 10/18/20 10/18/20 10/18/20 06:59 14:59 22:59 Intake Total 1000 / 2200 480 / 480 Output Total 100 / 100 Balance 900 / 2100 480 / 480 Weight last 48 hrs Weight 107.955 kg Weight 104.326 kg Physical Exam Const: COMMON NORMALS: no acute distress, patient oriented x3 and alert NUTRITIONAL APPEARANCE: obese ORIENTATION/CONSCIOUSNESS: Yes awake OTHER: Appears calm. HENMT: COMMON NORMALS: oropharynx normal Neck/C-Spine: COMMON NORMALS: no JVD Resp: COMMON NORMALS: normal respiratory effort and clear to auscultation bilaterally AUSCULTATION: clear to auscultation bilaterally Cardio: COMMON NORMALS: no JVD, regular rhythm, S1 normal heart sound present, S2 normal heart sound present and No murmurs present (Cardio) RHYTHM: regular rhythm HEART SOUNDS: S1 normal heart sound present and S2 normal heart sound present GI: COMMON NORMALS: Normal to inspection, nondistended, normoactive bowel sounds present and Soft to palpation PALPATION: Yes Soft to palpation and Yes Tenderness to palpation present (GI) (complains of some bloating, with minimal discomfort on palpation) : COMMON NORMALS: Yes no CVA tenderness BLADDER/KIDNEY EXAM: Yes no CVA tenderness Back/Pelvis: COMMON NORMALS: no CVA tenderness Extremity: COMMON NORMALS: no joint enlargement and no pedal edema Neuro: COMMON NORMALS: patient oriented x3 and moves all extremities SENSORIUM/ORIENTATION: Yes alert Skin: COMMON NORMALS: no rashes or lesions noted GENERAL SKIN EXAM: no rashes or lesions noted Data : 10/18/20 04:28 10/18/20 04:28 Micro: Microbiology 10/17/20 02:50 Blood Culture - Preliminary Blood Gram Negative Rods 10/17/20 00:30 Urine Culture - Preliminary Urine,Clean Catch Gram Negative Rods 10/17/20 04:28 Blood Culture - Preliminary Blood SPECIMEN COLLECTED A&P Assessment and plan (1) Acute pyelonephritis: Overall she has shown improvement. Fevers have shown improvement, although I see that this afternoon again spiking temperature up to 100 Fahrenheit. COVID-19 PCR is negative. We discussed with her again at length additional options with proceeding forward. Continuation of IV antibiotics, versus additional assessment by urology for consideration of ureteral stenting given pelviectasis noted in the right kidney. For now she elects to continue with IV antibiotic treatment for pyelonephritis. Follow-up on cultures. Should there be any decline in her condition, she is agreeable to seek additional assessment by urology on the inpatient side. Complicated urinary tract infection with gram-negative rods in urine and blood. Pending ID and sensitivities. At this time continue Rocephin. Follow-up urine culture. With associated nausea, vomiting, fever, diarrhea and abdominal discomfort so far GI symptoms have shown improvement. Advance diet to clear liquids. Status: Acute (2) Sepsis: Showing improvement, with improvement in frequency of fevers, improvement in leukocytosis. Continue antibiotics as above. Follow-up cultures. Status: Acute Qualifiers: Sepsis type: sepsis due to unspecified organism Sepsis acute organ dysfunction status: with acute organ dysfunction Severe sepsis acute organ dysfunction type: acute renal failure Acute renal failure type: unspecified Severe sepsis shock status: without septic shock Qualified Code(s): A41.9 - Sepsis, unspecified organism; R65.20 - Severe sepsis without septic shock; N17.9 - Acute kidney failure, unspecified (3) Acute kidney injury: Creatinine with improvement down to 1.6. She reports Aleve use at home which has been rather chronic. Discussed with her discontinuation. She verbalized understanding. Will use Tylenol instead if needed. Discussed multimodal pain control options. Continue gentle fluid challenge. Monitor renal function. Status: Acute (4) Abnormal heart rhythm: Status: Chronic Qualifiers: Arrhythmia type: unspecified cardiac arrhythmia Qualified Code(s): I49.9 - Cardiac arrhythmia, unspecified (5) Obesity: Status: Chronic Qualifiers: Obesity type: due to excess calories Obesity classification: adult class 3 (BMI >= 40) Serious obesity comorbidity presence: without serious comorbidity Body mass index: BMI 40.0-44.9 Qualified Code(s): E66.01 - Morbid (severe) obesity due to excess calories; Z68.41 - Body mass index [BMI]40.0-44.9, adult Additional A&P Information Follow-up on symptoms of urge incontinence with PCP and urology. Gastroesophagitis: With chronic NSAID use. Mild thickening of distal esophagus, stomach on CT. Does have some left-sided abdominal discomfort. Continue famotidine at this time. Consider additional endoscopic evaluation once out of acute episode. Diarrhea: So far resolved. Monitor. Follow-up stool studies. Follow-up COVID-19 PCR. Maintain isolation for now. Rapid COVID-19 was negative as well as rapid influenza antigen. Attestations Medical Necessity Statement*: Continue admission for assessment of management of improving sepsis, complicated UTI, pyelonephritis. Coding Level of Care Code Acute Field Sales Associate for [facility] Fwd Diagnoses Acute pyelonephritis N10 Sepsis A41.9; R65.20; N17.9 Sepsis type: sepsis due to unspecified organism Sepsis acute organ dysfunction status: with acute organ dysfunction Severe sepsis acute organ dysfunction type: acute renal failure Acute renal failure type: unspecified Severe sepsis shock status: without septic shock Acute kidney injury N17.9 Abnormal heart rhythm I49.9 Arrhythmia type: unspecified cardiac arrhythmia Obesity E66.01; Z68.41 Obesity type: due to excess calories Obesity classification: adult class 3 (BMI >= 40) Serious obesity comorbidity presence: without serious comorbidity Body mass index: BMI 40.0-44.9
[2020-10-18] MEDS: acetaminophen 325 mg Tablet 650 MG PO (18:03)
[2020-10-18] MEDS: ondansetron 2 mg/ML SDV 2 mL 4 MG IVP (20:45)
[2020-10-19] VITALS (8 sets, daily range): BP systolic 111–145; BP diastolic 60–79; PULSE 58–68; RESP 17–18; TEMP 36.5–37.6; O2SAT 97–100
[2020-10-19] MEDS: cefTRIAXone 1,000 MG in sodium chloride 0.9% (plus) 50 ML 100 MG IV (01:24)
[2020-10-19] MEDS: sodium chlor 0.9% + KCl 20 mEq 20 MEQ/1,000 ML BAG 100 MEQ IV (04:29)
[2020-10-19 05:20] LABS: Basophils # 0.1 10^3/uL (0.0-0.1); Basophils % 0.6 %; Eosinophils # 0.2 10^3/uL (0.0-0.8); Eosinophils % 1.7 %; Hematocrit 30.2 % (37.0-47.0); Hemoglobin 9.9 g/dL (11.5-15.3); Lymphocytes # 0.7 10^3/uL (0.8-4.8); Lymphocytes % 7.9 %; Mean Corpuscular HGB Conc 32.8 g/dL (30.0-36.0); Mean Corpuscular Hemoglobin 30.6 pg (28.0-34.0); Mean Corpuscular Volume 93.2 fL (81-99); Mean Platelet Volume 10.2 fL (7.4-10.4); Monocytes # 0.9 10^3/uL (0.2-0.9); Monocytes % 9.7 %; Neutrophils % 78.1 %; Nucleated Red Blood Cells % 0 %; Platelet Count 152 10^3/cmm (130-400); Red Blood Count 3.24 10^6/uL (4.1-5.3); Red Cell Distribution Width 13.3 % (12.1-15.1); White Blood Count 9.4 10^3/uL (4.0-10.0)
[2020-10-19 05:44] LABS: Alanine Aminotransferase 16 U/L (0-33); Albumin Level 2.5 g/dL (3.5-5.2); Alkaline Phosphatase 86 IU/L (35-105); Anion Gap 13.6 (5-19); Aspartate Amino Transferase 13 U/L (0-32); Blood Urea Nitrogen 25 mg/dL (8-23); Calcium 8.5 mg/dL (8.5-10.5); Carbon Dioxide 19 mmol/L (22-29); Chloride 107 mmol/L (98-107); Globulin 3.2 g/dL (1.3-4.6); Glomerular Filtration Rate 50.2 mL/min (90-130); Glucose 113 mg/dL (65-115); Osmolality Calculated 287 mOsm/kg (285-295); Potassium 3.6 mmol/L (3.5-5.1); Sodium 136 mmol/L (136-145); Total Bilirubin 0.3 mg/dL (0.15-1.2); Total Protein 5.7 g/dL (6.6-8.7)
[2020-10-19] MEDS: enoxaparin 40 mg/0.4 mL Syringe SUBCUT (06:05)
[2020-10-19] MEDS: lactobacillus 1 Tablet 1 TAB PO ×2 (10:00→17:38)
[2020-10-19] MEDS: famotidine 20 mg/2 mL INJ IVP ×2 (10:01→23:32)
[2020-10-19] MEDS: metoprolol tartrate 50 mg Tablet 25 MG PO ×2 (10:01→17:38)
--- NOTE | 2020-10-19 12:20 | PM.PN ---
Documented by User: CHUCK Lozoya STDNT 10/20/20 09:11 Subjective Subjective: Interval history: Mrs. Overton is a 65 yo female who presented on 10-16-20 for NVD and was found to have pyelonephritis. Pt says she constantly has diarrhea. Pt also says that last night she felt like she would get hot and then would have chills and shivering after. Pt also stated that she will get a fever in the afternoons, but it goes away after the nurse gives her a Tylenol. Pt is only drinking liquids as she doesn't have an appetite for fear of vomiting. Pt reports she feels bloated sometimes and can audibly hear her stomach gurgling. Pt denies headache, NV, dysuria, or burning with urination. Medications: Reviewed: Yes Vitals/I&O/Wt Last Vital Signs Temp 97.9 F 10/19/20 11:56 Pulse 59 L 10/19/20 11:56 Resp 17 10/19/20 11:56 BP 115/72 10/19/20 11:56 Pulse Ox 100 10/19/20 11:56 10/18/20 10/19/20 10/19/20 22:59 06:59 14:59 Intake Total 1000 / 1480 1000 / 2480 360 / 360 Output Total 600 / 600 500 / 1100 Balance 400 / 880 500 / 1380 360 / 360 Weight last 48 hrs Weight 110.45 kg Weight 107.955 kg Physical Exam Const: COMMON NORMALS: no acute distress, patient oriented x3 and no limitations GENERAL APPEARANCE: cooperative, comfortable and well kempt NUTRITIONAL APPEARANCE: obese ORIENTATION/CONSCIOUSNESS: Yes awake, Yes oriented to person, Yes oriented to place and Yes oriented to time OTHER: Appears calm. HENMT: COMMON NORMALS: normocephalic, atraumatic, hearing grossly normal bilaterally, external ears normal, Normal external nose present, Normal nasal mucous membranes and turbinates present, moist oral mucous membranes and oropharynx normal HEAD & SCALP: normocephalic and atraumatic FACE & SINUS: normal facial exam NOSE: Normal external nose present, Normal nares present and Normal nasal mucous membranes and turbinates present EXTERNAL EAR: Yes external ears normal Eye: COMMON NORMALS: Equal, round and reactive pupils present, EOMs intact bilaterally, no scleral icterus and normal visual baptiste by confrontation PUPIL: Yes Equal, round and reactive pupils present Neck/C-Spine: COMMON NORMALS: no JVD Resp: COMMON NORMALS: normal respiratory effort, No retractions, No use of accessory muscles and clear to auscultation bilaterally EFFORT & INSPECTION: Yes able to speak in complete sentences and Yes symmetric chest movement AUSCULTATION: clear to auscultation bilaterally Cardio: COMMON NORMALS: no JVD, regular rate, regular rhythm, S1 normal heart sound present, S2 normal heart sound present, No gallops present (Cardio), No clicks present (Cardio), No murmurs present (Cardio), No rub (Cardio) and Peripheral pulses 2+ throughout RATE: regular rate RHYTHM: regular rhythm HEART SOUNDS: S1 normal heart sound present and S2 normal heart sound present PERIPHERAL PULSES: Peripheral pulses 2+ throughout GI: COMMON NORMALS: Normal to inspection, nondistended, normoactive bowel sounds present, Soft to palpation, No hepatosplenomegaly present and no masses AUSCULTATION: Yes normoactive bowel sounds PALPATION: Yes Soft to palpation, Yes Tenderness to palpation present (GI) (complains of some bloating, with minimal discomfort on palpation) and Yes No hepatosplenomegaly present Extremity: COMMON NORMALS: no joint enlargement and no pedal edema Neuro: COMMON NORMALS: patient oriented x3 and moves all extremities SENSORIUM/ORIENTATION: Yes oriented to person, Yes oriented to place and Yes oriented to time Psych: COMMON NORMALS: cooperative APPEARANCE: Yes well kempt Skin: COMMON NORMALS: no rashes or lesions noted GENERAL SKIN EXAM: no rashes or lesions noted Data : 10/20/20 04:47 10/20/20 04:47 Micro: Microbiology 10/17/20 00:30 Urine Culture - Final Urine,Clean Catch Escherichia coli 10/17/20 04:28 Blood Culture - Preliminary Blood NEGATIVE TO DATE 10/17/20 02:50 Blood Culture - Preliminary Blood Gram Negative Rods A&P Assessment and plan (1) Acute pyelonephritis: Overall she has shown improvement. Fevers have shown improvement, although I see that this afternoon again spiking temperature up to 100 Fahrenheit. COVID-19 PCR is negative. We discussed with her again at length additional options with proceeding forward. Continuation of IV antibiotics, versus additional assessment by urology for consideration of ureteral stenting given pelviectasis noted in the right kidney. For now she elects to continue with IV antibiotic treatment for pyelonephritis. Follow-up on cultures. Should there be any decline in her condition, she is agreeable to seek additional assessment by urology on the inpatient side. Complicated urinary tract infection with gram-negative rods in urine and blood. Urine cultures show E. coli that is susceptible to all antibiotics. Waiting on ID for blood cultures. At this time continue Rocephin. No NV or abdominal tenderness today, overall GI symptoms improving. Advance diet to clear liquids. (2) Sepsis: Showing improvement, with improvement in frequency of fevers, improvement in leukocytosis. Continue antibiotics as above. Follow-up cultures. Status: Resolved Qualifiers: Acute renal failure type: unspecified Sepsis acute organ dysfunction status: with acute organ dysfunction Sepsis type: sepsis due to unspecified organism Severe sepsis acute organ dysfunction type: acute renal failure Severe sepsis shock status: without septic shock Qualified Code(s): A41.9 - Sepsis, unspecified organism; R65.20 - Severe sepsis without septic shock; N17.9 - Acute kidney failure, unspecified (3) Acute kidney injury: Creatinine with continued improvement down to 1.1. She reports Aleve use at home which has been rather chronic. Discussed with her discontinuation. She verbalized understanding. Will use Tylenol instead if needed. Discussed multimodal pain control options. Continue gentle fluid challenge. Monitor renal function. Status: Resolved (4) Abnormal heart rhythm: Qualifiers: Arrhythmia type: unspecified cardiac arrhythmia Qualified Code(s): I49.9 - Cardiac arrhythmia, unspecified (5) Obesity: Qualifiers: Body mass index: BMI 40.0-44.9 Obesity classification: adult class 3 (BMI >= 40) Obesity type: due to excess calories Serious obesity comorbidity presence: without serious comorbidity Qualified Code(s): E66.01 - Morbid (severe) obesity due to excess calories; Z68.41 - Body mass index [BMI]40.0-44.9, adult Additional A&P Information Follow-up on symptoms of urge incontinence with PCP and urology. Gastroesophagitis: With chronic NSAID use. Mild thickening of distal esophagus, stomach on CT. Does have some left-sided abdominal discomfort. Continue famotidine at this time. Consider additional endoscopic evaluation once out of acute episode. Diarrhea: Monitor. Follow-up stool studies. COVID-19 PCR negative. Discontinue isolation. Attestations Medical Necessity Statement*: as per medicine Coding Level of Care Code Acute [facility] Ex[facility] Comprehensive Diagnoses Acute pyelonephritis N10 Sepsis A41.9; R65.20; N17.9 Acute renal failure type: unspecified Sepsis acute organ dysfunction status: with acute organ dysfunction Sepsis type: sepsis due to unspecified organism Severe sepsis acute organ dysfunction type: acute renal failure Severe sepsis shock status: without septic shock Acute kidney injury N17.9 Abnormal heart rhythm I49.9 Arrhythmia type: unspecified cardiac arrhythmia Obesity E66.01; Z68.41 Body mass index: BMI 40.0-44.9 Obesity classification: adult class 3 (BMI >= 40) Obesity type: due to excess calories Serious obesity comorbidity presence: without serious comorbidity Documented by User: Nain Miller MD 10/21/20 08:27 Data : 10/20/20 04:47 10/20/20 04:47 Attestations Other Attestations: Patient seen and examined separately and discussed with medical student. Please see corresponding progress note from same date. 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 Comprehensive Diagnoses Acute pyelonephritis N10 Sepsis A41.9; R65.20; N17.9 Acute renal failure type: unspecified Sepsis acute organ dysfunction status: with acute organ dysfunction Sepsis type: sepsis due to unspecified organism Severe sepsis acute organ dysfunction type: acute renal failure Severe sepsis shock status: without septic shock Acute kidney injury N17.9 Abnormal heart rhythm I49.9 Arrhythmia type: unspecified cardiac arrhythmia Obesity E66.01; Z68.41 Body mass index: BMI 40.0-44.9 Obesity classification: adult class 3 (BMI >= 40) Obesity type: due to excess calories Serious obesity comorbidity presence: without serious comorbidity
--- NOTE | 2020-10-19 15:34 | PM.PN ---
Subjective Subjective: Interval history: He is overall feeling slightly better, but still is feeling bloated. Still having diarrhea. Abdominal pain is better. Poor appetite. This morning she noticed also some cough, little bit more difficult time catching her breath. Vitals/I&O/Wt Last Vital Signs Temp 97.9 F 10/19/20 11:56 Pulse 59 L 10/19/20 11:56 Resp 17 10/19/20 11:56 BP 115/72 10/19/20 11:56 Pulse Ox 100 10/19/20 11:56 10/19/20 10/19/20 10/19/20 06:59 14:59 22:59 Intake Total 1000 / 2480 720 / 720 Output Total 500 / 1100 Balance 500 / 1380 720 / 720 Weight last 48 hrs Weight 110.45 kg Weight 107.955 kg Physical Exam Const: COMMON NORMALS: no acute distress, patient oriented x3 and alert NUTRITIONAL APPEARANCE: obese ORIENTATION/CONSCIOUSNESS: Yes awake OTHER: Appears calm. HENMT: COMMON NORMALS: oropharynx normal Neck/C-Spine: COMMON NORMALS: no JVD Resp: COMMON NORMALS: normal respiratory effort and clear to auscultation bilaterally AUSCULTATION: clear to auscultation bilaterally Cardio: COMMON NORMALS: no JVD, regular rhythm, S1 normal heart sound present, S2 normal heart sound present and No murmurs present (Cardio) RHYTHM: regular rhythm HEART SOUNDS: S1 normal heart sound present and S2 normal heart sound present GI: COMMON NORMALS: Normal to inspection, nondistended, normoactive bowel sounds present and Soft to palpation PALPATION: Yes Soft to palpation and Yes Tenderness to palpation present (GI) (complains of some bloating, with minimal discomfort on palpation persisting) : COMMON NORMALS: Yes no CVA tenderness BLADDER/KIDNEY EXAM: Yes no CVA tenderness Back/Pelvis: COMMON NORMALS: no CVA tenderness Extremity: COMMON NORMALS: no joint enlargement and no pedal edema Neuro: COMMON NORMALS: patient oriented x3 and moves all extremities SENSORIUM/ORIENTATION: Yes alert Skin: COMMON NORMALS: no rashes or lesions noted GENERAL SKIN EXAM: no rashes or lesions noted Data : 10/19/20 05:06 10/19/20 05:06 Micro: Microbiology 10/17/20 02:50 Blood Culture - Preliminary Blood Escherichia coli 10/17/20 00:30 Urine Culture - Final Urine,Clean Catch Escherichia coli 10/17/20 04:28 Blood Culture - Preliminary Blood NEGATIVE TO DATE A&P Assessment and plan (1) Acute pyelonephritis: Low-grade temperature 100 Fahrenheit in the afternoon 10/18. Leukocytosis continues to improve. Currently resolved entirely. She is still having some abdominal symptoms, including bloating. She is still having diarrhea. We will continue Rocephin at this time. Cultures are showing pansensitive E. coli. Discussed with her regarding positive blood cultures as well. Monitor for resolution of fever, continued resolution of symptoms. C. difficile is pending. With persistent diarrhea will add additional stool studies. Should there be any decline in her condition, she is agreeable to seek additional assessment by urology on the inpatient side. Follow-up with urology in office. With associated nausea, vomiting, fever, diarrhea and abdominal discomfort so far GI symptoms have shown improvement. Advance diet to clear liquids. Status: Acute (2) Sepsis: Showing improvement. Improving. Continue to monitor for resolution of fever, improvement symptoms, tolerance of oral intake. Has been having very poor appetite so far. Continue antibiotics as above. Follow-up cultures. Status: Acute Qualifiers: Sepsis type: sepsis due to unspecified organism Sepsis acute organ dysfunction status: with acute organ dysfunction Severe sepsis acute organ dysfunction type: acute renal failure Acute renal failure type: unspecified Severe sepsis shock status: without septic shock Qualified Code(s): A41.9 - Sepsis, unspecified organism; R65.20 - Severe sepsis without septic shock; N17.9 - Acute kidney failure, unspecified (3) Acute kidney injury: Improving. She reports Aleve use at home which has been rather chronic. Discussed with her discontinuation. She verbalized understanding. Will use Tylenol instead if needed. Discussed multimodal pain control options. Continue gentle fluid challenge. Monitor renal function. Status: Acute (4) Abnormal heart rhythm: Status: Chronic Qualifiers: Arrhythmia type: unspecified cardiac arrhythmia Qualified Code(s): I49.9 - Cardiac arrhythmia, unspecified (5) Obesity: Status: Chronic Qualifiers: Obesity type: due to excess calories Obesity classification: adult class 3 (BMI >= 40) Serious obesity comorbidity presence: without serious comorbidity Body mass index: BMI 40.0-44.9 Qualified Code(s): E66.01 - Morbid (severe) obesity due to excess calories; Z68.41 - Body mass index [BMI]40.0-44.9, adult Additional A&P Information Dyspnea: We will go ahead and assess with chest x-ray. Hold additional IV fluids. Diarrhea: Persistent diarrhea. Possible gastroenteritis. Does have some gastroesophagitis as well, but this is probably unrelated. She says the last thing she ate was sometime last was [employer]. She otherwise denies eating at other restaurants, denies any possible undercooked food. C. difficile is pending. We will go ahead and assess additional stool studies given persistent symptoms. Bloating. Poor appetite. Poor oral intake: Advance diet as tolerating. Follow-up on symptoms of urge incontinence with PCP and urology. Gastroesophagitis: With chronic NSAID use. Mild thickening of distal esophagus, stomach on CT. Does have some left-sided abdominal discomfort. Continue famotidine at this time. Consider additional endoscopic evaluation once out of acute episode. Diarrhea: So far resolved. Monitor. Follow-up stool studies. Negative COVID-19 PCR. Rapid COVID-19 was negative as well as rapid influenza antigen. Attestations Medical Necessity Statement*: Continue admission for assessment management of complicated urine tract infection, pyelonephritis, sepsis, with poor oral intake, abdominal symptoms, assessment of persistent diarrhea, dyspnea. Coding Level of Care Code Acute Telephone Services [facility] Diagnoses Acute pyelonephritis N10 Sepsis A41.9; R65.20; N17.9 Sepsis type: sepsis due to unspecified organism Sepsis acute organ dysfunction status: with acute organ dysfunction Severe sepsis acute organ dysfunction type: acute renal failure Acute renal failure type: unspecified Severe sepsis shock status: without septic shock Acute kidney injury N17.9 Abnormal heart rhythm I49.9 Arrhythmia type: unspecified cardiac arrhythmia Obesity E66.01; Z68.41 Obesity type: due to excess calories Obesity classification: adult class 3 (BMI >= 40) Serious obesity comorbidity presence: without serious comorbidity Body mass index: BMI 40.0-44.9
--- NOTE | 2020-10-19 15:41 | XR_ITS ---
WS: [id number] Portable AP upright chest, 10/19/2020 Clinical Data: dyspnea Comparison: None. Findings: No nodules, masses or effusions are seen. The heart is large. The pulmonary vascularity is not increased. No pneumonia or pneumothorax is seen. XR/XR chest 1V portable [id number] Impression: Cardiomegaly
[2020-10-19] MEDS: trazodone 50 mg Tablet 25 MG PO (21:14)
[2020-10-20] MEDS: cefTRIAXone 1,000 MG in sodium chloride 0.9% (plus) 50 ML 100 MG IV (02:55)
[2020-10-20 04:05] VITALS: BP 127/74; PULSE 69; RESP 18; TEMP 36.7; O2SAT 99
[2020-10-20 05:45] LABS: Basophils # 0.1 10^3/uL (0.0-0.1); Basophils % 0.6 %; Eosinophils # 0.2 10^3/uL (0.0-0.8); Hematocrit 30.1 % (37.0-47.0); Hemoglobin 9.9 g/dL (11.5-15.3); Lymphocytes # 1.1 10^3/uL (0.8-4.8); Lymphocytes % 14.2 %; Mean Corpuscular HGB Conc 32.9 g/dL (30.0-36.0); Mean Corpuscular Hemoglobin 30.6 pg (28.0-34.0); Mean Corpuscular Volume 92.9 fL (81-99); Mean Platelet Volume 10.1 fL (7.4-10.4); Monocytes # 0.8 10^3/uL (0.2-0.9); Monocytes % 10.4 %; Neutrophils # 5.51 10^3/uL (1.8-7.7); Nucleated Red Blood Cells % 0 %; Platelet Count 215 10^3/cmm (130-400); Red Blood Count 3.24 10^6/uL (4.1-5.3); Red Cell Distribution Width 13.7 % (12.1-15.1); White Blood Count 7.9 10^3/uL (4.0-10.0)
[2020-10-20 05:57] VITALS: PULSE 56
[2020-10-20 06:25] LABS: Alanine Aminotransferase 16 U/L (0-33); Albumin Level 2.7 g/dL (3.5-5.2); Alkaline Phosphatase 88 IU/L (35-105); Anion Gap 15.3 (5-19); Aspartate Amino Transferase 11 U/L (0-32); Blood Urea Nitrogen 18 mg/dL (8-23); Calcium 8.7 mg/dL (8.5-10.5); Carbon Dioxide 19 mmol/L (22-29); Chloride 108 mmol/L (98-107); Globulin 3.3 g/dL (1.3-4.6); Glomerular Filtration Rate 63.2 mL/min (90-130); Glucose 132 mg/dL (65-115); Osmolality Calculated 292 mOsm/kg (285-295); Potassium 3.3 mmol/L (3.5-5.1); Sodium 139 mmol/L (136-145); Total Bilirubin 0.3 mg/dL (0.15-1.2)
[2020-10-20] MEDS: enoxaparin 40 mg/0.4 mL Syringe SUBCUT (06:38)
[2020-10-20 07:52] VITALS: BP 143/76; PULSE 58; RESP 17; TEMP 36.5; O2SAT 97
[2020-10-20] MEDS: lactobacillus 1 Tablet 1 TAB PO (08:03)
[2020-10-20] MEDS: metoprolol tartrate 50 mg Tablet 25 MG PO (08:04)
[2020-10-20 11:32] VITALS: BP 123/62; PULSE 61; RESP 17; TEMP 36.7; O2SAT 97
[2020-10-20] MEDS: famotidine 20 mg/2 mL INJ IVP (11:42)
[2020-10-20 14:00] VITALS: PULSE 61
[2020-10-20 15:41] VITALS: PULSE 61
--- NOTE | 2020-10-20 21:45 | PM.DCS ---
Discharge Providers Date of Admission: 10/17/20 04:59 Date of Discharge: October 20, 2020 Attending Provider at Admission: Evelyn Grider MD Attending Provider at Discharge: Nain Miller Primary Care Provider: Chitra Colunga NP Diagnoses at Discharge Discharge Diagnosis (1) Acute pyelonephritis: Status: Acute (2) Sepsis: Status: Acute Qualifiers: Sepsis type: sepsis due to unspecified organism Sepsis acute organ dysfunction status: with acute organ dysfunction Severe sepsis acute organ dysfunction type: acute renal failure Acute renal failure type: unspecified Severe sepsis shock status: without septic shock Qualified Code(s): A41.9 - Sepsis, unspecified organism; R65.20 - Severe sepsis without septic shock; N17.9 - Acute kidney failure, unspecified (3) Acute kidney injury: Status: Acute (4) Abnormal heart rhythm: Status: Chronic Permanent problem details: On metoprolol Qualifiers: Arrhythmia type: unspecified cardiac arrhythmia Qualified Code(s): I49.9 - Cardiac arrhythmia, unspecified (5) Obesity: Status: Chronic Qualifiers: Obesity type: due to excess calories Obesity classification: adult class 3 (BMI >= 40) Serious obesity comorbidity presence: without serious comorbidity Body mass index: BMI 40.0-44.9 Qualified Code(s): E66.01 - Morbid (severe) obesity due to excess calories; Z68.41 - Body mass index [BMI]40.0-44.9, adult Reason for Visit Reason for Visit: weakness/n/v/d Hospital Course Hospital Course Pleasant 65-year-old lady was admitted for assessment management of weakness, nausea, vomiting, diarrhea, Abdominal discomfort and lower abdominal area with noted watery stools. CT abdomen pelvis noted with diverticulosis without diverticulitis, with noted mild gastroesophageal thickening, and noted right renal pelviectasis although without evidence of stone, and with normal ureteric diameter. Urinalysis was suggestive of urinary tract infection with too numerous to count WBCs, 5-10 RBCs, 3+ bacteria. Coarse granular casts. She was noted to have acute kidney injury, creatinine 1.8. Hyponatremia sodium 129, potassium 3.2. With noted sepsis on presentation, leukocytosis 13.9. Fever 100.1. Tachypnea 24 breaths/min. She received IV fluid resuscitation. Started on Rocephin. Urine cultures but also blood cultures from 10/17 eventually grew pansensitive E. coli. She had some persistent diarrhea. This was negative for C. difficile. Negative lactoferrin. Additional stool studies ordered with bacterial culture, ova and parasites, however, those are still pending. Please follow-up results. Due to gastroesophageal thickening she is discharged with PPI. She notes taking Aleve for a long time consistently. She was counseled against further NSAID use. Once she recovers from acute episode has discussed with her she would benefit from endoscopic evaluation of gastroesophageal thickening. She verbalized understanding. With treatment sepsis gradually resolved. Leukocytosis normalized. Fevers resolved. She was able to tolerate oral intake. Diarrhea starting to show improvement. She is discharged with ciprofloxacin to complete the course of therapy. It is also recommended that she follow-up with urology given right side pelviectasis and intermittent symptoms of urge incontinence she also incidentally reports. Physical Exam Const: COMMON NORMALS: no acute distress, patient oriented x3 and alert GENERAL APPEARANCE: cooperative and comfortable NUTRITIONAL APPEARANCE: obese ORIENTATION/CONSCIOUSNESS: Yes awake OTHER: She is awake, alert, today feeling much better. In good spirits. Son is at bedside. HENMT: COMMON NORMALS: oropharynx normal Neck/C-Spine: COMMON NORMALS: no JVD Resp: COMMON NORMALS: normal respiratory effort and clear to auscultation bilaterally AUSCULTATION: clear to auscultation bilaterally Cardio: COMMON NORMALS: no JVD, regular rhythm, S1 normal heart sound present, S2 normal heart sound present and No murmurs present (Cardio) RHYTHM: regular rhythm HEART SOUNDS: S1 normal heart sound present and S2 normal heart sound present GI: COMMON NORMALS: Normal to inspection, nondistended, normoactive bowel sounds present and Soft to palpation PALPATION: Yes Soft to palpation and Yes Tenderness to palpation present (GI) (complains of some bloating, with minimal discomfort on palpation persisting) : COMMON NORMALS: Yes no CVA tenderness BLADDER/KIDNEY EXAM: Yes no CVA tenderness Back/Pelvis: COMMON NORMALS: no CVA tenderness Extremity: COMMON NORMALS: no joint enlargement and no pedal edema Neuro: COMMON NORMALS: patient oriented x3 and moves all extremities SENSORIUM/ORIENTATION: Yes alert Skin: COMMON NORMALS: no rashes or lesions noted GENERAL SKIN EXAM: no rashes or lesions noted Discharge Data Data Completed and Pending: Completed Studies During Hospitalization Category Date Time Status CT abdomen pelvis wo con [id number] Urge nt Cat Scan 10/16/20 23:00 Completed XR chest 1V hannah ble [id number] Routine Exams 10/19/20 15:41 Completed Pending at discharge Category Date Time Status Blood Culture Sta t Lab 10/17/20 04:28 Results Enteric Bacterial Panel by PCR Rout ine Lab 10/19/20 23:00 Received Enteric Parasite Panel by PCR Routi ne Lab 10/20/20 00:59 Received Labs from last 24 hours 10/20/20 10/20/20 04:47 04:47 WBC 7.9 RBC 3.24 L Hgb 9.9 L Hct 30.1 L MCV 92.9 MCH 30.6 MCHC 32.9 RDW 13.7 Plt Count 215 MPV 10.1 Neut % (Auto) 70.0 Lymph % (Auto) 14.2 [place] % (Auto) 10.4 Eos % (Auto) 3.0 Baso % (Auto) 0.6 Neut # (Auto) 5.51 Lymph # (Auto) 1.1 [place] # (Auto) 0.8 Eos # (Auto) 0.2 Baso # (Auto) 0.1 Nucleated RBC % (a uto) 0 Nucleated RBCs # 0.0 Sodium 139 Potassium 3.3 L Chloride 108 H Carbon Dioxide 19 L Anion Gap 15.3 BUN 18 Creatinine 0.9 GFR Calculation 63.2 L Glucose 132 H Calculated Osmolal ity 292 Calcium 8.7 Total Bilirubin 0.3 AST 11 ALT 16 Alkaline Phosphata se 88 Total Protein 6.0 L Albumin 2.7 L Globulin 3.3 Vitals: Last Vital Signs Temp 98.1 F 10/20/20 11:32 Pulse 61 10/20/20 15:41 Resp 17 10/20/20 11:32 BP 123/62 10/20/20 11:32 Pulse Ox 97 10/20/20 11:32 Discharge Plan Discharge Patient Disposition: Home Condition: Stable Prescriptions: New Cipro 250 mg tablet 250 mg PO BID Qty: 22 RF: 0 trazodone 50 mg Tablet 25 mg PO BEDTIME PRN (Reason: Sleep) Qty: 15 RF: 0 Gas Relief (simethicone) 40 mg/0.6 mL Drops,Suspension 40 mg PO QID PRN (Reason: Flatulence) Qty: 30 RF: 0 Lactobacillus acidoph-L.bulgar 1 million cell Tablet 1 tab PO BID Qty: 60 RF: 0 pantoprazole 40 mg tablet,delayed release (DR/EC) 40 mg PO DAILY 42 Days Qty: 45 RF: 0 potassium chloride 20 mEq tablet extended release 10 meq PO DAILY Qty: 7 RF: 0 Continued tramadol 50 mg tablet 50 mg PO Q6H PRN (Reason: Pain) RF: 0 metoprolol tartrate 50 mg tablet 50 mg PO BID RF: 0 gabapentin 100 mg capsule 100 mg PO DAILY RF: 0 Discharge Orders: Discharge Order (Routine); Ordered 10/20/20 Ordered By: Nain Miller Referrals: Yogi Pinto MD [Physician] - 2 weeks (R pelviectasis Dr. Pinto's office will be calling you with an appointment.) Chitra Colunga NP [Primary Care Provider] - 4-7 days (Please call [facility] and schedule an appoinment to follow up with Chitra Colunga. ) Discharge Diet: Advance as tolerated and Low Fat Discharge Activity: Increase activity as tolerated Patient Instructions: Ciprofloxacin (By mouth), Trazodone (By mouth), Potassium Chloride (By mouth), Simethicone (By mouth), Pantoprazole (By mouth), Probiotic (By mouth), Acute Kidney Injury (DC), Acute Pyelonephritis (DC), Sepsis (DC) Activity Restrictions/Additional Instructions: Please complete antibiotic course for E. coli UTI and bacteremia that you had on presentation. If you experience any fevers, any worsening right side back pain, any vomiting, or any other concerning symptoms please seek medical attention without delay. Please follow-up with urology in office regarding some dilation of the collecting structure of the right kidney, as well as regarding symptoms of urine incontinence. Discussed this also with your primary care doctor. Please have your primary care doctor follow-up your kidney function due to mild kidney injury noted on presentation to the hospital. Please avoid any further NSAIDs. Discontinue Aleve and avoid similar medications. Use Tylenol if needed for musculoskeletal pain, or topical ointments, gentle massage, warm or cold compresses, etc. Follow-up with your primary care doctor regarding diarrhea. C. difficile was negative in the hospital as well as stool lactoferrin. 2 additional tests were collected (test for bacterial or parasitic pathogens) and if there is any change in the results you will be contacted. Please have your primary care doctor follow-up on these results. Please have your primary care doctor refer you for additional assessment by endoscopic evaluation of the thickening noted in your esophagus and stomach. Please note you were also seen to have gallbladder stones which are not currently causing problems but please discuss and follow-up with your primary care doctor. Maintain low-fat diet. Due to slightly low potassium level you are given potassium supplementation. Please have your primary care doctor follow-up on this. Discharge Attestations Time Spent in Discharge Care*: greater than 30 min Quality Metrics Clinical Quality Measures During this hospital stay, did patient experience: None Coding Level of Care Code Acute [employer] Diagnoses Acute pyelonephritis N10 Sepsis A41.9; R65.20; N17.9 Sepsis type: sepsis due to unspecified organism Sepsis acute organ dysfunction status: with acute organ dysfunction Severe sepsis acute organ dysfunction type: acute renal failure Acute renal failure type: unspecified Severe sepsis shock status: without septic shock Acute kidney injury N17.9 Abnormal heart rhythm I49.9 Arrhythmia type: unspecified cardiac arrhythmia Obesity E66.01; Z68.41 Obesity type: due to excess calories Obesity classification: adult class 3 (BMI >= 40) Serious obesity comorbidity presence: without serious comorbidity Body mass index: BMI 40.0-44.9
== END 2020-10-20 15:46 | disposition home or self-care (01) | DRG 872 ==
LOC: ER 10-17 03:38 → MEDSURG 10-17 05:57
PROVIDERS: Physician Assistant; Admitting Provider Hospitalist; Emergency Provider Emergency Medicine; PCP Nurse Practitioner Family; Visit Provider Internal Medicine
DX: A41.9 Sepsis, unspecified organism (principal); N10 Acute pyelonephritis; N17.9 Acute kidney failure, unspecified; Z68.41 Body mass index [BMI] 40.0-44.9, adult; E87.1 Hypo-osmolality and hyponatremia; R65.20 Severe sepsis without septic shock; E66.9 Obesity, unspecified; M19.90 Unspecified osteoarthritis, unspecified site; Z96.641 Presence of right artificial hip joint; I49.9 Cardiac arrhythmia, unspecified; K20.90 Esophagitis, unspecified without bleeding; Z79.1 Long term (current) use of non-steroidal anti-inflammatories (NSAID); R19.7 Diarrhea, unspecified; K57.30 Diverticulosis of large intestine without perforation or abscess without bleeding; B96.20 Unspecified Escherichia coli [E. coli] as the cause of diseases classified elsewhere
CPT/HCPCS: 12345; 36415; 71045; 74176; 80048; 80053; 81001; 83605; 83630; 83690; 83735; 84100; 85025; 87040; 87077; 87086; 87186; 87205; 87426; 87493; 87506; 87635; 87804; 96372; 99282; J0696; J1650; J2405; J2765; J3490; J7030

== ENCOUNTER → 2020-10-27 08:39 | Outpatient (BNVA) | payer OTHER, SELFPAY | PROVIDERS: PCP Nurse Practitioner Family; Referring Provider Internal Medicine; Visit Provider Urology | DX: N10 Acute pyelonephritis (principal); N28.89 Other specified disorders of kidney and ureter; N17.9 Acute kidney failure, unspecified | CPT/HCPCS: 81003 ==

== ENCOUNTER 2020-12-13 13:56 | Outpatient (CLI) | payer OTHER, SELFPAY ==
--- NOTE | 2020-12-13 14:15 | US_ITS ---
WS: [id number] RENAL ULTRASOUND REASON FOR EXAM: Renal pelviectasis TECHNIQUE: Grayscale and Doppler ultrasound examination of the kidneys. FINDINGS: Right kidney: Right kidney measures 11.9 cm x 4.7 cm x 4.2 cm. There is mild dilatation of the centra l renal collecting system with partial extrarenal pelvis was noted on previous CT scan of the abdomen and pelvis 10/17/2020. 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 No ca lculus or mass was identified within the right kidney. Left kidney: Left kidney measures 10.4 cm x 5.5 cm x 3.7 cm. No mass, hydronephrosis, or calculus. No intraluminal abnormality of the bladder was seen. Small post void residual. 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
== END 2020-12-13 13:57 | disposition home or self-care (01) ==
LOC: US 14:00
PROVIDERS: PCP Nurse Practitioner Family; Visit Provider Urology
DX: N28.89 Other specified disorders of kidney and ureter (principal)
CPT/HCPCS: 76770

== ENCOUNTER → 2021-09-28 15:32 | Outpatient (BNVA) | payer OTHER, SELFPAY | PROVIDERS: PCP Nurse Practitioner Family; Visit Provider Nurse Practitioner Family | DX: Z20.828 Contact with and (suspected) exposure to other viral communicable diseases (principal) | CPT/HCPCS: 87426 ==

== ENCOUNTER → 2023-01-02 16:21 | Outpatient (BNVA) | payer MEDICARE, SELFPAY | PROVIDERS: PCP Family Medicine Adult Medicine; Visit Provider Family Medicine Adult Medicine | DX: K64.4 Residual hemorrhoidal skin tags (principal); L72.0 Epidermal cyst | CPT/HCPCS: 88304 ==

== ENCOUNTER → 2024-12-25 10:06 | Outpatient (BNVA) | payer MEDICARE, SELFPAY | PROVIDERS: PCP Family Medicine; Visit Provider Family Medicine | DX: I10 Essential (primary) hypertension (principal); R00.1 Bradycardia, unspecified; K80.20 Calculus of gallbladder without cholecystitis without obstruction; D64.9 Anemia, unspecified; M15.9 Polyosteoarthritis, unspecified; I49.9 Cardiac arrhythmia, unspecified | CPT/HCPCS: 80053; 80061; 82607; 83540; 84443; 85025; 87086 ==